=== PATIENT | female | born 1945 | race Caucasian/White ===

== ENCOUNTER 2017-08-20 09:48 | Inpatient (IN) | payer MEDICARE ==
[~2017-08-20] VITALS: Ht 152.4 cm; Wt 47.8 kg
[2017-08-20] VITALS (7 sets, daily range): BP systolic 147–167; BP diastolic 88–99
[2017-08-20 13:29] LABS: BASO % 0 % (0-3); EOS % 0 % (0-3); HEMATOCRIT 27.6 % (36.0-47.0); HEMOGLOBIN 8.5 g/dL (12.0-15.5); LYMPH # 1.4 x10^3/uL (1.0-4.8); LYMPH % 14 % (24-48); MEAN CORPUSCULAR HEMOGLOBIN 22 pg (25-35); MEAN CORPUSCULAR HGB CONC 31 g/dL (31-37); MEAN CORPUSCULAR VOLUME 72 fL (79-100); MONO # 0.8 x10^3/uL (0.0-1.1); MONO % 8 % (0-9); NEUT # 7.7 x10^3uL (1.8-7.7); NEUT % 78 % (31-73); PLATELET COUNT 600 x10^3/uL (140-400); RED BLOOD COUNT 3.82 x10^6/uL (3.50-5.40); RED CELL DISTRIBUTION WIDTH 21.7 % (11.5-14.5); WHITE BLOOD COUNT 9.9 x10^3/uL (4.0-11.0)
[2017-08-20] MEDS ORDERED: VANCOMYCIN 1.25 GM in IV NORMAL SALINE 250ML 250 ML IV ONE (13:30)
[2017-08-20 13:38] LABS: ALBUMIN 2.9 g/dL (3.4-5.0); ALBUMIN/GLOBULIN RATIO 0.6 (1.0-1.7); CALCIUM 9.1 mg/dL (8.5-10.1); CREATININE 0.8 mg/dL (0.6-1.0); GFR 71.1; POTASSIUM 3.6 mmol/L (3.5-5.1); TOTAL BILIRUBIN 0.2 mg/dL (0.2-1.0); TOTAL PROTEIN 7.5 g/dL (6.4-8.2)
[2017-08-20] MEDS ORDERED: ACET500T68 PO (13:38)
[2017-08-20] MEDS ORDERED: LISI10TA2 PO (13:38)
[2017-08-20 14:01] LABS: ANISOCYTOSIS MOD; HYPOCHROMIA MOD; MICROCYTOSIS SLIGHT; PLT ESTIMATE INCREASED (ADEQUATE); POLYCHROMASIA MOD
[2017-08-20 14:02] LABS: TEAR DROP CELLS OCC
[2017-08-20] MEDS: VANCOMYCIN PER PHARMACY MC PRN (14:51)
[2017-08-20 15:10] LABS: BILIRUBIN,URINE NEG (NEG); CLARITY,URINE HAZY; COLOR,URINE YELLOW; GLUCOSE,URINE NEG (NEG)
[2017-08-20 15:11] LABS: BACTERIA,URINE FEW /HPF (0-FEW); HYALINE CASTS, URINE MOD /HPF; NITRITE,URINE NEG (NEG); SQUAMOUS EPITHELIAL CELL,UR MANY /LPF; UROBILINOGEN,URINE 0.2 mg/dL (0.2 mg/dL)
[2017-08-20] MEDS: ACETAMINOPHEN 500 MG TABLET PO SCH ×2 (17:32→22:10)
[2017-08-20] MEDS: LACTOBACILLUS RHAMNOSUS GG 1 CAPSULE. PO SCH (22:10)
[2017-08-20] MEDS: MELATONIN 3 MG TABLET PO PRN (22:11)
[2017-08-21 07:05] LABS: BASO # 0.1 x10^3/uL (0.0-0.2); BASO % 1 % (0-3); EOS # 0.1 x10^3/uL (0.0-0.7); EOS % 1 % (0-3); HEMATOCRIT 25.7 % (36.0-47.0); HEMOGLOBIN 7.9 g/dL (12.0-15.5); LYMPH % 13 % (24-48); MEAN CORPUSCULAR HEMOGLOBIN 23 pg (25-35); MEAN CORPUSCULAR HGB CONC 31 g/dL (31-37); MEAN CORPUSCULAR VOLUME 73 fL (79-100); MONO # 0.8 x10^3/uL (0.0-1.1); MONO % 10 % (0-9); NEUT # 6.2 x10^3uL (1.8-7.7); NEUT % 75 % (31-73); PLATELET COUNT 532 x10^3/uL (140-400); RED BLOOD COUNT 3.51 x10^6/uL (3.50-5.40); RED CELL DISTRIBUTION WIDTH 21.1 % (11.5-14.5); WHITE BLOOD COUNT 8.2 x10^3/uL (4.0-11.0)
[2017-08-21 07:21] LABS: ALBUMIN 2.6 g/dL (3.4-5.0); ALBUMIN/GLOBULIN RATIO 0.6 (1.0-1.7); CALCIUM 8.6 mg/dL (8.5-10.1); CREATININE 0.6 mg/dL (0.6-1.0); GFR 99.1; POTASSIUM 3.5 mmol/L (3.5-5.1); TOTAL BILIRUBIN 0.2 mg/dL (0.2-1.0)
[2017-08-21] MEDS: ACETAMINOPHEN 500 MG TABLET PO SCH ×4 (09:22→20:13)
[2017-08-21] MEDS: LACTOBACILLUS RHAMNOSUS GG 1 CAPSULE. PO SCH ×2 (09:22→19:56)
--- NOTE | 2017-08-21 09:32 | RAD ---
Indication: Chest trauma. History of bilateral breast cancer with lumpectomy. Technique: PA and lateral views of the chest Comparison: None Findings: Heart is normal in size. Focal small consolidation is seen in the left upper lobe. Small hazy down opacities seen in the right upper lobe. No pneumothorax or pleural effusion. Mild curvature of the thoracal lumbar spine. Visualized bony thorax within normal limits. Impression: Small focal consolidation in the left upper lobe and in the right upper lobe may represent pneumonia. However, given history of breast cancer, pulmonary mass is not ruled out. CT chest with IV contrast recommended for better evaluation.
[2017-08-21] MEDS: LISINOPRIL 10 MG TABLET PO SCH (09:33)
[2017-08-21 10:26] VITALS: BP 124/86
--- NOTE | 2017-08-21 10:32 | RAD ---
Indication: Pain and weakness in hands, feet and left knee. History of bilateral breast cancer. Technique: Nuclear medicine bone scan with 25.9 mCi of technetium 99m MDP. Whole-body Planar and focus thoracic spine views obtained. Comparison: None Findings: Focal Increased radiotracer activity is seen in the left aspect of the upper cervical spine. Focal increased radiotracer activity is seen in the T3 vertebral body. Focal increased radiotracer activity seen in the right aspect of the L4 vertebral body. Symmetric bilateral knee joint, shoulder joints, wrist joints and first MTP joints increased uptake noted most likely from degenerative changes. Impression: Focal increased uptake of radiotracer in the cervical, thoracic and lumbar spine concerning for osteoblastic metastasis especially in T3 vertebral body.
[2017-08-21] MEDS ORDERED: IOHEXOL 300 MG/ML 75 ML VIAL. IV ONE (13:00)
--- NOTE | 2017-08-21 13:55 | PDOC2 ---
CONSULT Date of Admission DATE: 08/21/17 TIME: 13:43 Reason for Consult: Right chest wall mass Referring Physician: Mina Chief Complaint joint pain Source: Chart review, Patient History of Present Illness 71 yo F presents with c/o diffuse joint pain. Noticed this worsening over the last two months, minimizing her ability to do house hold chores. Reports also having multiple bacteria noted in blood and admitted for IV abx. PICC line ordered but appears to have been cancelled secondary to LUE lymphedema. Pt with history of breast cancer. Previous lumpectomy with positive margins, but no additional surgery. Has noted chest wall lesion for 7 years. Concerned about proceeding with additional treatment, given emotional trauma of previous interventions. Heme/Onc: Cancer (previous breast cancer in 2000. Treated by [facility] and [facility]. Had surgery, chemo and radiation.) Rheumatologic: Other (joint pain fingers, left hip, knees and ankles) Past Surgical History: Other (lumpectomy) Family History: Cancer Smoke: Quit ALCOHOL: occassional Lives: with Family Current Medications Current Medications Vancomycin HCl (Vanco Per Pharmacy) 1 each PRN DAILY PRN MC SEE COMMENTS Last administered on 08/20/17at 14:51; Start 08/20/17 at 11:15 Vancomycin HCl 1.25 gm/Sodium Chloride 250 ml @ 166.667 mls/hr 1X ONCE IV Last administered on 08/20/17at 14:21; Start 08/20/17 at 13:30; Stop 08/20/17 at 14:59; Status DC Vancomycin HCl 750 mg/Sodium Chloride 250 ml @ 250 mls/hr Q24H IV ; Start 08/21 at 14:30 Lactobacillus Rhamnosus (Culturelle) 1 cap BID PO Last administered on at 09:22; Start 08/20/17 at 21:00 Vancomycin HCl (Vancomycin Trough Level) 1 each 1X ONCE MC ; Start 08/22/17 at 14:00; Stop 08/22/17 at 14:01 Acetaminophen (Tylenol) 1,000 mg QID PO Last administered on 08/21/17at 09:22; Start 08/20/17 at 17:00 Lisinopril (Prinivil) 10 mg DAILY PO Last administered on 08/21/17at 09:33; Start 08/21/17 at 09:00 Melatonin 10 mg PRN QHS PRN PO INSOMNIA Last administered on 08/20/17at 22:11; Start 08/20/17 at 20:15 Ferrous Sulfate (Feosol) 325 mg DAILYWBKFT PO ; Start 08/22/17 at 08:00 Iohexol (Omnipaque 300 Mg/ml) 75 ml 1X ONCE IV ; Start 08/21/17 at 13:00; Stop 08/21/17 at 13:01; Status DC Olanzapine (ZyPREXA) 5 mg DAILY PO ; Start 08/21/17 at 21:00; Status UNV Active Scripts Active Reported Acetaminophen 500 Mg Tablet 2 Tab PO QID LAST DOSE GIVEN: DATE: TIME: NEXT DOSE DUE: DATE: TIME: Lisinopril 10 Mg Tablet 1 Tab PO DAILY LAST DOSE GIVEN: DATE: TIME: NEXT DOSE DUE: DATE: TIME: Allergies: Coded Allergies: codeine (Verified Allergy, Unknown, 08/20/17) Breast: YES: Other (7 year history of breast mass) Musculoskeletal: YES: Joint Pain Physical Exam right breast with right large irregular, purple fixed mass with foul odor General: Alert, Oriented X3, Cooperative, No acute distress HEENT: Atraumatic Lungs: Normal air movement Abdomen: Soft, No tenderness Extremities: Other (LUE lymphedema) VITALS Vital Signs Date Time Temp Pulse Resp B/P (MAP) Pulse Ox O2 Delivery O2 Flow Rate FiO2 08/21/17 10:26 99.1 101 18 124/86 (99) 97 Room Air Labs Laboratory Tests Test 08/20/17 12:55 08/20/17 14:30 08/20/17 15:32 08/21/17 06:23 White Blood Count 9.9 x10^3/uL (4.0-11.0) 8.2 x10^3/uL (4.0-11.0) Red Blood Count 3.82 x10^6/uL (3.50-5.40) 3.51 x10^6/uL (3.50-5.40) Hemoglobin 8.5 g/dL (12.0-15.5) 7.9 g/dL (12.0-15.5) Hematocrit 27.6 % (36.0-47.0) 25.7 % (36.0-47.0) Mean Corpuscular Volume 72 fL (79-100) 73 fL (79-100) Mean Corpuscular Hemoglobin 22 pg (25-35) 23 pg (25-35) Mean Corpuscular Hemoglobin Concent 31 g/dL (31-37) 31 g/dL (31-37) Red Cell Distribution Width 21.7 % (11.5-14.5) 21.1 % (11.5-14.5) Platelet Count 600 x10^3/uL (140-400) 532 x10^3/uL (140-400) Neutrophils (%) (Auto) 78 % (31-73) 75 % (31-73) Lymphocytes (%) (Auto) 14 % (24-48) 13 % (24-48) Monocytes (%) (Auto) 8 % (0-9) 10 % (0-9) Eosinophils (%) (Auto) 0 % (0-3) 1 % (0-3) Basophils (%) (Auto) 0 % (0-3) 1 % (0-3) Neutrophils # (Auto) 7.7 x10^3uL (1.8-7.7) 6.2 x10^3uL (1.8-7.7) Lymphocytes # (Auto) 1.4 x10^3/uL (1.0-4.8) 1.0 x10^3/uL (1.0-4.8) Monocytes # (Auto) 0.8 x10^3/uL (0.0-1.1) 0.8 x10^3/uL (0.0-1.1) Eosinophils # (Auto) 0.0 x10^3/uL (0.0-0.7) 0.1 x10^3/uL (0.0-0.7) Basophils # (Auto) 0.0 x10^3/uL (0.0-0.2) 0.1 x10^3/uL (0.0-0.2) Platelet Estimate Increased (ADEQUATE) Large Platelets Occ Polychromasia Mod Hypochromasia Mod Anisocytosis Mod Microcytosis Slight Tear Drop Cells Occ Sodium Level 140 mmol/L (136-145) 139 mmol/L (136-145) Potassium Level 3.6 mmol/L (3.5-5.1) 3.5 mmol/L (3.5-5.1) Chloride Level 101 mmol/L (98-107) 102 mmol/L (98-107) Carbon Dioxide Level 27 mmol/L (21-32) 29 mmol/L (21-32) Anion Gap 12 (6-14) 8 (6-14) Blood Urea Nitrogen 28 mg/dL (7-20) 18 mg/dL (7-20) Creatinine 0.8 mg/dL (0.6-1.0) 0.6 mg/dL (0.6-1.0) Estimated GFR (Cockcroft-Gault) 71.1 99.1 BUN/Creatinine Ratio 35 (6-20) 30 (6-20) Glucose Level 138 mg/dL (70-99) 99 mg/dL (70-99) Lactic Acid Level 1.9 mmol/L (0.4-2.0) Calcium Level 9.1 mg/dL (8.5-10.1) 8.6 mg/dL (8.5-10.1) Iron Level 18 ug/dL (50-170) Total Iron Binding Capacity 355 ug/dL (250-450) Iron Saturation 5 % (15-34) Ferritin 16 ng/mL (8-252) Total Bilirubin 0.2 mg/dL (0.2-1.0) 0.2 mg/dL (0.2-1.0) Aspartate Amino Transf (AST/SGOT) 13 U/L (15-37) 16 U/L (15-37) Alanine Aminotransferase (ALT/SGPT) 13 U/L (14-59) 12 U/L (14-59) Alkaline Phosphatase 97 U/L (46-116) 85 U/L (46-116) Total Protein 7.5 g/dL (6.4-8.2) 7.0 g/dL (6.4-8.2) Albumin 2.9 g/dL (3.4-5.0) 2.6 g/dL (3.4-5.0) Albumin/Globulin Ratio 0.6 (1.0-1.7) 0.6 (1.0-1.7) Urine Collection Type Unknown Urine Color Yellow Urine Clarity Hazy Urine pH 6.0 Urine Specific [place] 1.020 Urine Protein Trace (NEG-TRACE) Urine Glucose (UA) Neg mg/dL (NEG) Urine Ketones (Stick) Neg mg/dL (NEG) Urine Blood Neg (NEG) Urine Nitrite Neg (NEG) Urine Bilirubin Neg (NEG) Urine Urobilinogen Dipstick 0.2 mg/dL (0.2 mg/dL) Urine Leukocyte Esterase Trace (NEG) Urine RBC 1-2 /HPF (0-2) Urine WBC 5-10 /HPF (0-4) Urine Squamous Epithelial Cells Many /LPF Urine Bacteria Few /HPF (0-FEW) Urine Hyaline Casts Mod /HPF Urine Mucus Mod /LPF D-Dimer (Lou) 1.93 mg/L (0.00-0.50) Images bone scan concerning for mets CXR concerning for mets Assessment/Plan right chest wall, concerning for breast mass pt seems very hesitant in pursuing treatment have offered her to F/u with Dr. Vasques regarding possible treatment oncology consult and treatment may offer symptomatic relief with joint pain Thanks for consult! Problems: GREGORY MOLINA MD Aug 21, 2017 13:55
[2017-08-21] MEDS ORDERED: VANCOMYCIN 750 MG in IV NORMAL SALINE 250ML 250 ML IV SCH (14:30)
--- NOTE | 2017-08-21 15:00 | RAD ---
Indication: Shortness of breath for one day. Positive d-dimer. History of breast cancer. Technique: CT angiogram of chest with 75 mL of Omnipaque 300 with multiplanar MIP reformats. Comparison: None Findings: Sonography study due to contrast bolus timing. There are no central or proximal segmental filling defects. Evaluation of distal segmental and subsegmental pulmonary arteries is limited. Large soft tissue mass is seen in the right breast with superficial ulceration. The mass extends to the chest wall. Left axillary lymph node dissection. There are no mediastinal or hilar enlarged lymph nodes. Heart is normal in size. Coronary artery calcifications. Consolidation is seen in the right middle lobe with air bronchograms. Consolidation is seen in the lingula. Diffuse 2 to 3 mm centrilobular nodules are seen in the posterior segment of the right upper lobe. Multiple discrete scattered nodules are seen as follows: 3 mm nodule in the right lower lobe (series 3 image 63). 3 mm nodule in the right lower lobe posteriorly (series 3 image 62). 8 mm nodule in the posterior aspect of the right lower lobe (series 3 image 74). 3 mm nodule in the left lower lobe (series 3 image 57). Visualized sections through the liver, spleen, gallbladder, pancreas, adrenals are within normal limits. Sclerosis of the T4 vertebral body involving the without compression deformity. Impression: 1. Suboptimal PE study. No central or proximal segmental PE. Evaluation of distal segmental and subsegmental pulmonary arteries is limited and hence PE cannot be ruled out. However, there is no evidence of pulmonary infarct. 2. Consolidation in the right middle lobe and left lingula may be secondary to cicatrical atelectasis from radiation. 3. Bilateral pulmonary nodules as described above. Findings are highly concerning for metastasis. 4. Predominantly centrilobular nodules in the right upper lobe may be metastatic or or infectious. 5. Large mass in the right breast compatible with history of breast cancer. 6. T4 vertebral body metastasis without compression deformity. PQRS Compliance Statement: One or more of the following individualized dose reduction techniques were utilized for this examination: 1. Automated exposure control 2. Adjustment of the mA and/or kV according to patient size 3. Use of iterative reconstruction technique
[2017-08-21 15:23] VITALS: BP 153/92
[2017-08-21 19:00] VITALS: BP 157/87
[2017-08-21] MEDS: MELATONIN 3 MG TABLET PO PRN (19:56)
[2017-08-21] MEDS ORDERED: OLANZapine 5 MG TABLET PO SCH ×2 (21:00)
[2017-08-21 23:34] VITALS: BP 151/93
--- NOTE | 2017-08-22 03:58 | PN ---
DATE: 08/21/2017 SUBJECTIVE: A 71-year-old female in with breast cancer, but she has an infection around the cellulitis. This patient is in ____ denial as to her medical issues. We will try to get her transferred to other facilities or even referred to a cancer specialist. She has refused. She has a lot of anxiety, try to get her in with other specialists. She also looks like she is very emaciated, very severe protein malnutrition. Otherwise, I had a lengthy discussion with her. Apparently, they could not put the PICC line in because of lymphedema in her left arm and the mass is on her right arm. She may have metastasis to her lungs as well as to her back, large mass in the right breast. We have noted several times to get her to [facility], but she has refused, but then refuses to go to [place] as well. It is quite a difficult situation to try to handle this patient. Apparently, she has had it for some time. OBJECTIVE: VITALS SIGNS: She is running low grade temperature of 99.6, blood pressure 150/90, pulse 96, respiratory rate 18. GENERAL: The patient alert and oriented, as noted very anxious. LUNGS: Diminished throughout, poor movement of air. CARDIOVASCULAR: Tachycardic. ABDOMEN: Soft, nontender. The patient is on IV vancomycin. She does not want to have a central line placed for the vancomycin. As noted, it is a very difficult situation with the patient. IMPRESSION: Breast cancer with probable mets, cellulitis to the right upper chest wall area, severe anxiety and denial syndrome. FRANCISCO LING MD DR: RUBEN/camelia JOB#: [id number] / [id number]
[2017-08-22] MEDS: ACETAMINOPHEN 500 MG TABLET PO SCH ×3 (05:53→17:00)
[2017-08-22 06:11] VITALS: BP 159/100
[2017-08-22 06:41] LABS: BASO % 0 % (0-3); EOS # 0.1 x10^3/uL (0.0-0.7); EOS % 1 % (0-3); HEMATOCRIT 25.5 % (36.0-47.0); HEMOGLOBIN 7.8 g/dL (12.0-15.5); LYMPH # 1.2 x10^3/uL (1.0-4.8); LYMPH % 12 % (24-48); MEAN CORPUSCULAR HEMOGLOBIN 23 pg (25-35); MEAN CORPUSCULAR HGB CONC 31 g/dL (31-37); MEAN CORPUSCULAR VOLUME 74 fL (79-100); MONO % 10 % (0-9); NEUT # 7.8 x10^3uL (1.8-7.7); NEUT % 77 % (31-73); PLATELET COUNT 526 x10^3/uL (140-400); RED BLOOD COUNT 3.46 x10^6/uL (3.50-5.40); RED CELL DISTRIBUTION WIDTH 21.6 % (11.5-14.5); WHITE BLOOD COUNT 10.1 x10^3/uL (4.0-11.0)
[2017-08-22 06:48] LABS: CALCIUM 8.6 mg/dL (8.5-10.1); CREATININE 0.6 mg/dL (0.6-1.0); GFR 99.1; POTASSIUM 3.6 mmol/L (3.5-5.1)
[2017-08-22] MEDS ORDERED: FERROUS SULFATE 325 MG TABLET. PO SCH (08:00)
[2017-08-22] MEDS: LISINOPRIL 10 MG TABLET PO SCH (08:48)
[2017-08-22] MEDS ORDERED: LISINOPRIL 10 MG TABLET PO ONE (10:00)
[2017-08-22] MEDS ORDERED: traMADol 50 MG TABLET PO PRN (10:00)
--- NOTE | 2017-08-22 10:39 | PDOC ---
SURGICAL PROGRESS NOTE Subjective Doing ok in some pain Vital Signs Vital Signs Date Time Temp Pulse Resp B/P (MAP) Pulse Ox O2 Delivery O2 Flow Rate FiO2 08/22/17 08:48 98 159/100 08/22/17 06:11 98.1 20 96 Room Air I&O Intake and Output 08/22/17 07:00 Intake Total 840 ml Output Total 1850 ml Balance -1010 ml Intake Oral 840 ml Output Urine Total 1850 ml # Voids 3 PATIENT HAS A AMAYA: No General: Alert, Oriented X3, Cooperative, mild distress Abdomen: Other (large fungating right breat mass ) Labs Laboratory Tests Test 08/20/17 12:55 08/20/17 14:30 08/20/17 15:32 08/21/17 06:23 White Blood Count 9.9 x10^3/uL (4.0-11.0) 8.2 x10^3/uL (4.0-11.0) Red Blood Count 3.82 x10^6/uL (3.50-5.40) 3.51 x10^6/uL (3.50-5.40) Hemoglobin 8.5 g/dL (12.0-15.5) 7.9 g/dL (12.0-15.5) Hematocrit 27.6 % (36.0-47.0) 25.7 % (36.0-47.0) Mean Corpuscular Volume 72 fL (79-100) 73 fL (79-100) Mean Corpuscular Hemoglobin 22 pg (25-35) 23 pg (25-35) Mean Corpuscular Hemoglobin Concent 31 g/dL (31-37) 31 g/dL (31-37) Red Cell Distribution Width 21.7 % (11.5-14.5) 21.1 % (11.5-14.5) Platelet Count 600 x10^3/uL (140-400) 532 x10^3/uL (140-400) Neutrophils (%) (Auto) 78 % (31-73) 75 % (31-73) Lymphocytes (%) (Auto) 14 % (24-48) 13 % (24-48) Monocytes (%) (Auto) 8 % (0-9) 10 % (0-9) Eosinophils (%) (Auto) 0 % (0-3) 1 % (0-3) Basophils (%) (Auto) 0 % (0-3) 1 % (0-3) Neutrophils # (Auto) 7.7 x10^3uL (1.8-7.7) 6.2 x10^3uL (1.8-7.7) Lymphocytes # (Auto) 1.4 x10^3/uL (1.0-4.8) 1.0 x10^3/uL (1.0-4.8) Monocytes # (Auto) 0.8 x10^3/uL (0.0-1.1) 0.8 x10^3/uL (0.0-1.1) Eosinophils # (Auto) 0.0 x10^3/uL (0.0-0.7) 0.1 x10^3/uL (0.0-0.7) Basophils # (Auto) 0.0 x10^3/uL (0.0-0.2) 0.1 x10^3/uL (0.0-0.2) Platelet Estimate Increased (ADEQUATE) Large Platelets Occ Polychromasia Mod Hypochromasia Mod Anisocytosis Mod Microcytosis Slight Tear Drop Cells Occ Sodium Level 140 mmol/L (136-145) 139 mmol/L (136-145) Potassium Level 3.6 mmol/L (3.5-5.1) 3.5 mmol/L (3.5-5.1) Chloride Level 101 mmol/L (98-107) 102 mmol/L (98-107) Carbon Dioxide Level 27 mmol/L (21-32) 29 mmol/L (21-32) Anion Gap 12 (6-14) 8 (6-14) Blood Urea Nitrogen 28 mg/dL (7-20) 18 mg/dL (7-20) Creatinine 0.8 mg/dL (0.6-1.0) 0.6 mg/dL (0.6-1.0) Estimated GFR (Cockcroft-Gault) 71.1 99.1 BUN/Creatinine Ratio 35 (6-20) 30 (6-20) Glucose Level 138 mg/dL (70-99) 99 mg/dL (70-99) Lactic Acid Level 1.9 mmol/L (0.4-2.0) Calcium Level 9.1 mg/dL (8.5-10.1) 8.6 mg/dL (8.5-10.1) Iron Level 18 ug/dL (50-170) Total Iron Binding Capacity 355 ug/dL (250-450) Iron Saturation 5 % (15-34) Ferritin 16 ng/mL (8-252) Total Bilirubin 0.2 mg/dL (0.2-1.0) 0.2 mg/dL (0.2-1.0) Aspartate Amino Transf (AST/SGOT) 13 U/L (15-37) 16 U/L (15-37) Alanine Aminotransferase (ALT/SGPT) 13 U/L (14-59) 12 U/L (14-59) Alkaline Phosphatase 97 U/L (46-116) 85 U/L (46-116) Total Protein 7.5 g/dL (6.4-8.2) 7.0 g/dL (6.4-8.2) Albumin 2.9 g/dL (3.4-5.0) 2.6 g/dL (3.4-5.0) Albumin/Globulin Ratio 0.6 (1.0-1.7) 0.6 (1.0-1.7) Urine Collection Type Unknown Urine Color Yellow Urine Clarity Hazy Urine pH 6.0 Urine Specific [place] 1.020 Urine Protein Trace (NEG-TRACE) Urine Glucose (UA) Neg mg/dL (NEG) Urine Ketones (Stick) Neg mg/dL (NEG) Urine Blood Neg (NEG) Urine Nitrite Neg (NEG) Urine Bilirubin Neg (NEG) Urine Urobilinogen Dipstick 0.2 mg/dL (0.2 mg/dL) Urine Leukocyte Esterase Trace (NEG) Urine RBC 1-2 /HPF (0-2) Urine WBC 5-10 /HPF (0-4) Urine Squamous Epithelial Cells Many /LPF Urine Bacteria Few /HPF (0-FEW) Urine Hyaline Casts Mod /HPF Urine Mucus Mod /LPF D-Dimer (Lou) 1.93 mg/L (0.00-0.50) Test 08/22/17 05:40 White Blood Count 10.1 x10^3/uL (4.0-11.0) Red Blood Count 3.46 x10^6/uL (3.50-5.40) Hemoglobin 7.8 g/dL (12.0-15.5) Hematocrit 25.5 % (36.0-47.0) Mean Corpuscular Volume 74 fL (79-100) Mean Corpuscular Hemoglobin 23 pg (25-35) Mean Corpuscular Hemoglobin Concent 31 g/dL (31-37) Red Cell Distribution Width 21.6 % (11.5-14.5) Platelet Count 526 x10^3/uL (140-400) Neutrophils (%) (Auto) 77 % (31-73) Lymphocytes (%) (Auto) 12 % (24-48) Monocytes (%) (Auto) 10 % (0-9) Eosinophils (%) (Auto) 1 % (0-3) Basophils (%) (Auto) 0 % (0-3) Neutrophils # (Auto) 7.8 x10^3uL (1.8-7.7) Lymphocytes # (Auto) 1.2 x10^3/uL (1.0-4.8) Monocytes # (Auto) 1.0 x10^3/uL (0.0-1.1) Eosinophils # (Auto) 0.1 x10^3/uL (0.0-0.7) Basophils # (Auto) 0.0 x10^3/uL (0.0-0.2) Sodium Level 139 mmol/L (136-145) Potassium Level 3.6 mmol/L (3.5-5.1) Chloride Level 104 mmol/L (98-107) Carbon Dioxide Level 27 mmol/L (21-32) Anion Gap 8 (6-14) Blood Urea Nitrogen 16 mg/dL (7-20) Creatinine 0.6 mg/dL (0.6-1.0) Estimated GFR (Cockcroft-Gault) 99.1 Glucose Level 96 mg/dL (70-99) Calcium Level 8.6 mg/dL (8.5-10.1) Assessment/Plan Metastatic breast cancer with right chest wall mass. Do not have anything to offer surgically with metastatic disease and large mass. Comfort care measures. FERMÍN BLOCK MD Aug 22, 2017 10:39
[2017-08-22] MEDS ORDERED: metroNIDAZOLE 500 MG TABLET PO SCH (11:00)
[2017-08-22 13:30] VITALS: BP 147/93
[2017-08-22 14:17] LABS: VANC TR 5.7 mcg/mL (10.0-20.0)
[2017-08-22] MEDS: VANCOMYCIN PER PHARMACY MC PRN (15:05)
[2017-08-22] MEDS ORDERED: VANCOMYCIN 750 MG in IV NORMAL SALINE 250ML 250 ML IV SCH (15:30)
[2017-08-22] MEDS: LACTOBACILLUS RHAMNOSUS GG 1 CAPSULE. PO SCH (15:45)
--- NOTE | 2017-08-22 22:02 | DS ---
DATE OF DISCHARGE: 08/22/2017 HOSPITAL COURSE: The patient for the last 7 years apparently has had this growth in her right breast area turned out to be cancerous. The patient has been in great deal of denial and not so anxious about many things that she did not want to do a lot of the testing or referral that she needed although eventually we convinced her to see Dr. Razo at [place] for evaluation. The patient otherwise during her hospital administration had IV antibiotic for an infection. In this mass, they grew out some unusual bacteria including 1 bacteria Prevotella species as well as another one called Finegoldia magna. In any case, it was sensitive to vancomycin and metronidazole and she was placed on such. The patient made relatively good progress, unsuccessful PICC line in the left arm because of lymphedema, right arm. They did not want to do that because of the mass in her right breast. The patient declined an indwelling catheter, right IJ line. In any case, the patient made reasonably good progress. Her blood pressure was up. Her hemoglobin is down 7.8 and 25 platelets elevated to 500,000. Chemistry is basically unremarkable except for a very low albumin of 2.6. She did have an elevated D-dimer. Her scans were negative for pulmonary emboli; however, her bone scan did demonstrate increased tracer of the cervical, thoracic and lumbar spine, possibly osteoblastic and probably osteoblastic activity. The patient's CTA demonstrated consolidation in the right middle lobe, left lingula, may be secondary to the cicatricial atelectasis from radiation, which she may have had in the past and metastatic lesions in the upper chest area of the right upper lobe, large mass in the right breast compatible with history of breast cancer. The patient needs more of a extensive workup, but again is very difficult. She is having a great deal of hesitation about doing anything else. Recommended she seek counseling as well. She has waited so long and this that has been very difficult to get this thing under control. IMPRESSION: Cellulitis to the breast, breast cancer with mets to the cervical spine, thoracic and lumbar spines, hypertension, severe protein malnutrition, anemia, probably secondary to iron deficiency anemia, thrombocytosis. So she will continue on IV vancomycin and metronidazole as an outpatient, make further evaluation on her, get her with Dr. Razo, probably Pulmonology as well if she will go along with it. She has been very reluctant and demanded to be discharged home today. She will be on a regular diet. See [facility]AD. FRANCISCO LING MD DR: RUBEN/camelia JOB#: [id number] / [id number]
[2017-08-23] MEDS ORDERED: LISINOPRIL 20 MG TABLET PO SCH (09:00)
== END 2017-08-22 18:35 | disposition home or self-care (01) | DRG 597 ==
LOC: 1 SOUTH 11:04
PROVIDERS: ADMIT Family Medicine; ATTEND Family Medicine
DX: C50.911 Malignant neoplasm of unspecified site of right female breast (principal); E43 Unspecified severe protein-calorie malnutrition; C79.51 Secondary malignant neoplasm of bone; C50.912 Malignant neoplasm of unspecified site of left female breast; D47.3 Essential (hemorrhagic) thrombocythemia; D50.9 Iron deficiency anemia, unspecified; J98.11 Atelectasis; Z53.8 Procedure and treatment not carried out for other reasons; F41.9 Anxiety disorder, unspecified; I10 Essential (primary) hypertension; I89.0 Lymphedema, not elsewhere classified; Z51.5 Encounter for palliative care; Z85.3 Personal history of malignant neoplasm of breast; Z88.8 Allergy status to other drugs, medicaments and biological substances; Z68.20 Body mass index [BMI] 20.0-20.9, adult; Z92.3 Personal history of irradiation
CPT/HCPCS: 36415; 71046; 71275; 78306; 80048; 80053; 80202; 81001; 82728; 83540; 83550; 83605; 85025; 85379; 87040; 87086; 96374; A9503; J3370; J7050; Q9967